=== PATIENT | male | born 1975 | race American Indian/Alaskan Native ===

== ENCOUNTER 2018-11-10 09:46 | Emergency (ER) | payer MEDICAID ==
[2018-11-10] MEDS ORDERED: Succinylcholine 200 MG/10 ML MDV IV ONE (09:47)
[2018-11-10] MEDS ORDERED: Propofol 200 MG/20 ML SDV IV ONE (09:47)
[2018-11-10] MEDS ORDERED: Rocuronium 100 MG/10 ML MDV IV ONE (09:47)
[2018-11-10] MEDS ORDERED: Piperacillin/Tazobactam 3.375 GM in Sodium Chloride 0.9% 100 ML IV ONE (10:19)
[2018-11-10] MEDS ORDERED: Sodium Chloride 0.9% 100 ML ONE (10:19)
[2018-11-10] MEDS ORDERED: Albuterol/Ipratropium 3.0-0.5 MG/3 ML Neb Soln ONE (10:21)
[2018-11-10] MEDS ORDERED: Albuterol/Ipratropium 3.0-0.5 MG/3 ML Neb Soln NEB ONE (10:22)
[2018-11-10] MEDS ORDERED: Norepinephrine 4 MG in Dextrose 5% in Water 246 ML IV SCH ×2 (10:30)
--- NOTE | 2018-11-10 10:36 | PCM.SN ---
- Free Text/Narrative Note: Intubation. Called by ER provider for intubation. Pt obtunded, spontaneous respiratory effort and assisted with ambu bag, O2 sats in the high 70's. Pt's friend present and able to give limited history. Pt defasciculated with 5 mg of zemuron at 1105, 160 mg of propofol for sedation at 1108 and 100 mg of anectine at 1109. Glidescope used per ER provider, # 4 blade, unable to intubate, Pt bagged, with O2 sats dropping. #3 Glidescope blade, unable to intubate. Intubated by [employer] at 1111. 22 cm at lip, BBS, pos fogging and ETCO2 color change. OG placed, PCXR. [facility] here at 1020. Report given and care assumed by [facility]. PCXR confirmed tube placement.
[2018-11-10] MEDS ORDERED: cefTRIAXone 1 GM Vial IM ONE (10:37)
[2018-11-10 10:38] LABS: CHLORIDE,CL 108 mmol/L (101-111); SODIUM,NA 140 mmol/L (135-145)
[2018-11-10] MEDS ORDERED: cefTRIAXone 1 GM in Sodium Chloride 0.9% 50 ML IV ONE (10:39)
[2018-11-10] MEDS ORDERED: Albuterol 0.083% 2.5 MG/3 ML Neb Soln ONE (10:40)
[2018-11-10] MEDS ORDERED: methylPREDNISolone Sodium Succinate 125 MG/2 ML SDV IVPUSH ONE (10:42)
--- NOTE | 2018-11-10 12:42 | EDM.PDOC ---
Scribed by Grace Faust 11/10/18 1134 for Jenelle Reed NP ED HPI GENERAL MEDICAL PROBLEM - General Chief Complaint: Respiratory Problem Stated Complaint: UNKNOWN Time Seen by Provider: 11/10/18 09:50 Source of Information: Reports: EMS, EMS Notes Reviewed, Family, RN, RN Notes Reviewed History Limitations: Reports: Altered Mental Status, Respiratory Distress - History of Present Illness INITIAL COMMENTS - FREE TEXT/NARRATIVE: Patient presents to ER per [facility] from [facility]. His found patient unresponsive. They had been up earlier in the morning. states recent history of bilateral pneumonia and hospitalized in [place]. Family is from the [place] area. They are here visiting. EMS reports SATS 30 upon their arrival. Patient opens eyes to voice. Patient is in severe distress. Onset: Today Severity: Severe Improves with: Reports: None Worsens with: Reports: None Associated Symptoms: Reports: No Other Symptoms Past Medical History Respiratory History: Reports: Other (See Below) Other Respiratory History: double pneumonia ED ROS GENERAL - Review of Systems Review Of Systems: Unable To Obtain (due to severe respiratory distress) ED EXAM, GENERAL - Physical Exam Exam: See Below Exam Limited By: Respiratory Distress General Appearance: Severe Distress Eye Exam: Bilateral Eye: Other (pupils 3 very sluggish) Ears: Normal External Exam, Normal Canal, Hearing Grossly Normal, Normal TMs Nose: Normal Inspection, Normal Mucosa, No Blood Throat/Mouth: Normal Inspection, Normal Lips, Normal Teeth, Normal Gums, Normal Oropharynx, Normal Voice, No Airway Compromise Head: Atraumatic, Normocephalic Neck: Normal Inspection, Supple, Non-Tender, Full Range of Motion Respiratory/Chest: Other (No air movement right lung. Crackles/rhonchi left lung.) Cardiovascular: Tachycardia GI/Abdominal: Normal Bowel Sounds, Soft, Non-Tender, No Organomegaly, No Distention, No Abnormal Bruit, No Mass (Male) Exam: Deferred Rectal (Males) Exam: Deferred Back Exam: Normal Inspection, Full Range of Motion, NT Extremities: Normal Inspection, Normal Range of Motion, Non-Tender, Normal Capillary Refill, No Pedal Edema Neurological: Other (altered mental status) Psychiatric: Normal Affect, Normal Mood Skin Exam: Warm, Dry, Intact, Normal Color, No Rash Course - Vital Signs Last Recorded V/S: Last Vital Signs Temp 98.8 F 04/20/19 09:50 Pulse 88 11/10/18 09:50 Resp 18 11/10/18 09:50 BP 96/70 11/10/18 09:50 Pulse Ox 75 L 11/10/18 09:50 - Orders/Labs/Meds Orders: Active Orders 24 hr Category Date Time Status RT Aerosol Therapy [RC] ASDIRECTED Care 11/10/18 10:22 Active CULTURE BLOOD [BC] Routine Lab 11/10/18 10:02 Received CULTURE BLOOD [BC] Routine Lab 11/10/18 10:08 Received CULTURE STREP A CONFIRMATION [RM] Stat Lab 11/10/18 10:19 Results STREP SCRN A RAPID W CULT CONF [RM] Stat Lab 11/10/18 10:19 Results Labs: Laboratory Tests 11/10/18 11/10/18 11/10/18 Range/Units 10:02 10:02 10:02 WBC 6.6 (5.0-10.0) 10^3/uL RBC 4.05 L (4.6-6.2) 10^6/uL Hgb 10.6 L (14.0-18.0) g/dL Hct 34.3 L (40.0-54.0) % MCV 84.7 (80-100) fL MCH 26.2 L (27.0-34.0) pg MCHC 30.9 L (33.0-35.0) g/dL Plt Count 230 (150-450) 10^3/uL Neut % (Auto) 86.0 H (42.2-75.2) % Lymph % (Auto) 5.6 L (20.5-50.1) % [place] % (Auto) 7.7 (2-8) % Eos % (Auto) 0.2 L (1.0-3.0) % Baso % (Auto) 0.5 (0.0-1.0) % Add Manual Diff Yes Neutrophils % (Manual) 13 L (42-75) % Band Neutrophils % 49 % Lymphocytes % (Manual) 11 L (20-50) % Monocytes % (Manual) 4 (2-8) % Metamyelocytes % 15 Myelocytes % 8 Vacuolated Monocytes Few Dohle Bodies Few Platelet Estimate Adequate Basophilic Stippling Few Anisocytosis 2+ moderate Target Cells Few Ovalocytes Few PT (9.0-12.0) SEC INR (0.9-1.2) D-Dimer, Quantitative (0-400) ng/mL Sodium 140 (135-145) mmol/L Potassium 4.0 (3.6-5.0) mmol/L Chloride 108 (101-111) mmol/L Carbon Dioxide 22.0 (21.0-31.0) mmol/L Anion Gap 14.0 BUN 31 H (7-18) mg/dL Creatinine 1.2 (0.6-1.3) mg/dL Est Cr Clr Drug Dosing TNP Estimated GFR (MDRD) > 60 BUN/Creatinine Ratio 25.83 Glucose 91 (74-105) mg/dL Lactic Acid 1.6 (0.5-2.2) mmol/L Calcium 7.8 L (8.4-10.2) mg/dl Total Bilirubin 1.2 H (0.2-1.0) mg/dL AST 109 H (10-42) IU/L ALT 175 H (10-60) IU/L Alkaline Phosphatase 158 H (42-121) IU/L Troponin I 0.04 H* (0.00-0.02) ng/ml B-Natriuretic Peptide (0-100) pg/ml Total Protein 6.1 L (6.7-8.2) g/dl Albumin 3.1 L (3.2-5.5) g/dl Globulin 3.0 Albumin/Globulin Ratio 1.03 Urine Color (YELLOW) Urine Appearance (CLEAR) Urine pH (5.0-9.0) Ur Specific [place] (1.005-1.030) Urine Protein (NEGATIVE) Urine Glucose (UA) (NEGATIVE) Urine Ketones (NEGATIVE) Urine Occult Blood (NEGATIVE) Urine Nitrite (NEGATIVE) Urine Bilirubin (NEGATIVE) Urine Urobilinogen (0.2-1.0) mg/dL Ur Leukocyte Esterase (NEGATIVE) Urine RBC /HPF Urine WBC (0-5/HPF) /HPF Ur Epithelial Cells /HPF Amorphous Sediment (0/HPF) /HPF Urine Bacteria (0-FEW/HPF) /HPF Hyaline Casts /LPF Urine Mucus /LPF Urine Opiates Screen (NEGATIVE) Ur Oxycodone Screen (NEGATIVE) Urine Methadone Screen (NEGATIVE) Ur Barbiturates Screen (NEGATIVE) U Tricyclic Antidepress (NEGATIVE) Ur Phencyclidine Scrn (NEGATIVE) Ur Amphetamine Screen (NEGATIVE) U Methamphetamines Scrn (NEGATIVE) Urine MDMA Screen (NEGATIVE) U Benzodiazepines Scrn (NEGATIVE) Urine Cocaine Screen (NEGATIVE) U Marijuana (THC) Screen (NEGATIVE) 11/10/18 11/10/18 11/10/18 Range/Units 10:02 10:02 10:02 WBC (5.0-10.0) 10^3/uL RBC (4.6-6.2) 10^6/uL Hgb (14.0-18.0) g/dL Hct (40.0-54.0) % MCV (80-100) fL MCH (27.0-34.0) pg MCHC (33.0-35.0) g/dL Plt Count (150-450) 10^3/uL Neut % (Auto) (42.2-75.2) % Lymph % (Auto) (20.5-50.1) % Knox % (Auto) (2-8) % Eos % (Auto) (1.0-3.0) % Baso % (Auto) (0.0-1.0) % Add Manual Diff Neutrophils % (Manual) (42-75) % Band Neutrophils % % Lymphocytes % (Manual) (20-50) % Monocytes % (Manual) (2-8) % Metamyelocytes % Myelocytes % Vacuolated Monocytes Dohle Bodies Platelet Estimate Basophilic Stippling Anisocytosis Target Cells Ovalocytes PT 9.9 (9.0-12.0) SEC INR 1.0 (0.9-1.2) D-Dimer, Quantitative 717 H (0-400) ng/mL Sodium (135-145) mmol/L Potassium (3.6-5.0) mmol/L Chloride (101-111) mmol/L Carbon Dioxide (21.0-31.0) mmol/L Anion Gap BUN (7-18) mg/dL Creatinine (0.6-1.3) mg/dL Est Cr Clr Drug Dosing Estimated GFR (MDRD) BUN/Creatinine Ratio Glucose (74-105) mg/dL Lactic Acid (0.5-2.2) mmol/L Calcium (8.4-10.2) mg/dl Total Bilirubin (0.2-1.0) mg/dL AST (10-42) IU/L ALT (10-60) IU/L Alkaline Phosphatase (42-121) IU/L Troponin I (0.00-0.02) ng/ml B-Natriuretic Peptide 236 H (0-100) pg/ml Total Protein (6.7-8.2) g/dl Albumin (3.2-5.5) g/dl Globulin Albumin/Globulin Ratio Urine Color (YELLOW) Urine Appearance (CLEAR) Urine pH (5.0-9.0) Ur Specific [place] (1.005-1.030) Urine Protein (NEGATIVE) Urine Glucose (UA) (NEGATIVE) Urine Ketones (NEGATIVE) Urine Occult Blood (NEGATIVE) Urine Nitrite (NEGATIVE) Urine Bilirubin (NEGATIVE) Urine Urobilinogen (0.2-1.0) mg/dL Ur Leukocyte Esterase (NEGATIVE) Urine RBC /HPF Urine WBC (0-5/HPF) /HPF Ur Epithelial Cells /HPF Amorphous Sediment (0/HPF) /HPF Urine Bacteria (0-FEW/HPF) /HPF Hyaline Casts /LPF Urine Mucus /LPF Urine Opiates Screen (NEGATIVE) Ur Oxycodone Screen (NEGATIVE) Urine Methadone Screen (NEGATIVE) Ur Barbiturates Screen (NEGATIVE) U Tricyclic Antidepress (NEGATIVE) Ur Phencyclidine Scrn (NEGATIVE) Ur Amphetamine Screen (NEGATIVE) U Methamphetamines Scrn (NEGATIVE) Urine MDMA Screen (NEGATIVE) U Benzodiazepines Scrn (NEGATIVE) Urine Cocaine Screen (NEGATIVE) U Marijuana (THC) Screen (NEGATIVE) 11/10/18 11/10/18 Range/Units 10:15 10:15 WBC (5.0-10.0) 10^3/uL RBC (4.6-6.2) 10^6/uL Hgb (14.0-18.0) g/dL Hct (40.0-54.0) % MCV (80-100) fL MCH (27.0-34.0) pg MCHC (33.0-35.0) g/dL Plt Count (150-450) 10^3/uL Neut % (Auto) (42.2-75.2) % Lymph % (Auto) (20.5-50.1) % Knox % (Auto) (2-8) % Eos % (Auto) (1.0-3.0) % Baso % (Auto) (0.0-1.0) % Add Manual Diff Neutrophils % (Manual) (42-75) % Band Neutrophils % % Lymphocytes % (Manual) (20-50) % Monocytes % (Manual) (2-8) % Metamyelocytes % Myelocytes % Vacuolated Monocytes Dohle Bodies Platelet Estimate Basophilic Stippling Anisocytosis Target Cells Ovalocytes PT (9.0-12.0) SEC INR (0.9-1.2) D-Dimer, Quantitative (0-400) ng/mL Sodium (135-145) mmol/L Potassium (3.6-5.0) mmol/L Chloride (101-111) mmol/L Carbon Dioxide (21.0-31.0) mmol/L Anion Gap BUN (7-18) mg/dL Creatinine (0.6-1.3) mg/dL Est Cr Clr Drug Dosing Estimated GFR (MDRD) BUN/Creatinine Ratio Glucose (74-105) mg/dL Lactic Acid (0.5-2.2) mmol/L Calcium (8.4-10.2) mg/dl Total Bilirubin (0.2-1.0) mg/dL AST (10-42) IU/L ALT (10-60) IU/L Alkaline Phosphatase (42-121) IU/L Troponin I (0.00-0.02) ng/ml B-Natriuretic Peptide (0-100) pg/ml Total Protein (6.7-8.2) g/dl Albumin (3.2-5.5) g/dl Globulin Albumin/Globulin Ratio Urine Color Dark yellow (YELLOW) Urine Appearance Cloudy (CLEAR) Urine pH 5.5 (5.0-9.0) Ur Specific [place] 1.025 (1.005-1.030) Urine Protein 30 H (NEGATIVE) Urine Glucose (UA) Negative (NEGATIVE) Urine Ketones Trace H (NEGATIVE) Urine Occult Blood Negative (NEGATIVE) Urine Nitrite Negative (NEGATIVE) Urine Bilirubin Small H (NEGATIVE) Urine Urobilinogen 1.0 (0.2-1.0) mg/dL Ur Leukocyte Esterase Negative (NEGATIVE) Urine RBC 0-5 /HPF Urine WBC 0-5 (0-5/HPF) /HPF Ur Epithelial Cells Few /HPF Amorphous Sediment Moderate (0/HPF) /HPF Urine Bacteria Few (0-FEW/HPF) /HPF Hyaline Casts Many H /LPF Urine Mucus Many H /LPF Urine Opiates Screen Positive H (NEGATIVE) Ur Oxycodone Screen Positive H (NEGATIVE) Urine Methadone Screen Negative (NEGATIVE) Ur Barbiturates Screen Negative (NEGATIVE) U Tricyclic Antidepress Negative (NEGATIVE) Ur Phencyclidine Scrn Negative (NEGATIVE) Ur Amphetamine Screen Negative (NEGATIVE) U Methamphetamines Scrn Negative (NEGATIVE) Urine MDMA Screen Negative (NEGATIVE) U Benzodiazepines Scrn Negative (NEGATIVE) Urine Cocaine Screen Negative (NEGATIVE) U Marijuana (THC) Screen Negative (NEGATIVE) Meds: Medications Discontinued Medications Generic Name Dose Route Start Last Admin Trade Name Frealexei PRN Reason Stop Dose Admin Albuterol Confirm 11/10/18 10:40 11/10/18 10:30 Proventil Neb Soln Administered 11/10/18 10:41 7.5 mg Dose Administration 7.5 mg .ROUTE .STK-MED ONE Albuterol/Ipratropium 3 ml 11/10/18 10:22 11/10/18 10:32 Duoneb 3.0-0.5 Mg/3 Ml NEB 11/10/18 10:23 3 ml ONETIME ONE Administration Albuterol/Ipratropium Confirm 11/10/18 10:21 11/10/18 11:07 Duoneb 3.0-0.5 Mg/3 Ml Administered 11/10/18 10:22 Not Given Dose 3 ml .ROUTE .STK-MED ONE Ceftriaxone Sodium 1 gm 11/10/18 10:37 Rocephin IM 11/10/18 10:38 ONETIME ONE Ceftriaxone Sodium 1,000 mg/ 100 mls @ 200 mls/hr 11/10/18 10:18 Sodium Chloride IV 11/10/18 10:47 ONETIME ONE Piperacillin Sod/Tazobactam 100 mls @ 200 mls/hr 11/10/18 10:19 11/10/18 10: 34 Sod 3.375 gm/ Sodium Chloride IV 11/10/18 10:48 200 mls/hr ONETIME ONE Administration Norepinephrine Bitartrate 4 mg 250 mls @ 7.5 mls/hr 11/10/18 10:30 11/10/18 10:33 / Dextrose/Water IV 2 mcg/min TITRATE TORSTEN 7.5 mls/hr Administration Protocol 2 MCG/MIN Sodium Chloride Confirm 11/10/18 10:19 11/10/18 11:07 Normal Saline Administered 11/10/18 10:20 Not Given Dose 100 mls @ as directed .ROUTE .STK-MED ONE Ceftriaxone Sodium 1 gm/ 50 mls @ 50 mls/hr 11/10/18 10:39 11/10/18 10:30 Sodium Chloride IV 11/10/18 11:38 50 mls/hr ONETIME ONE Administration Methylprednisolone Sodium Succinate 125 mg 11/10/18 10:42 11/10/18 10:45 Solu-Medrol IVPUSH 11/10/18 10:43 125 mg ONETIME ONE Administration - Radiology Interpretation Free Text/Narrative:: Chest xray pre intubation: Findings/impression: There are patchy to consolidative multifocal right lung opacities concerning for multifocal pneumonia. There are hazy left infrahilar opacities. No effusion or pneumothorax is seen. Heart size is mildly prominent for technique. Thank you for allowing us to participate in the care of your patient. Dictated and Authenticated by: Luis Espinosa MD 11/10/2018 10:55 AM Central Time ([place] & [place]) Chest xray post intubation: FINDINGS/IMPRESSION: An endotracheal tube is in place terminating well above the cherri at the sternoclavicular joint level. Multifocal consolidated right lung airspace disease and patchy left infrahilar opacities are again noted. There is no pneumothorax. Thank you for allowing us to participate in the care of your patient. Dictated and Authenticated by: Luis Espinosa MD 11/10/2018 10:54 AM Central Time ([place] & [place]) See rad report - Re-Assessments/Exams Free Text/Narrative Re-Assessment/Exam: 11/10/18 12:38 Discussed patient case with Dr. Jones in the ER at [facility], who accepted the patient for transfer via chopper. Departure - Departure Time of Disposition: 10:58 Disposition: DC/Tfer to Acute Hospital 02 Condition: Poor, Critical Clinical Impression: Pneumonia Qualifiers: Pneumonia type: due to unspecified organism Laterality: bilateral Lung location : unspecified part of lung Qualified Code(s): J18.9 - Pneumonia, unspecified organism Respiratory failure Qualifiers: Chronicity: acute Respiratory failure complication: hypoxia and hypercapnia Qualified Code(s): J96.01 - Acute respiratory failure with hypoxia; J96.02 - Acute respiratory failure with hypercapnia - Discharge Information *PRESCRIPTION DRUG MONITORING PROGRAM REVIEWED*: No *COPY OF PRESCRIPTION DRUG MONITORING REPORT IN PATIENT KAYLIE: No Referrals: PCP,Not In Area [Primary Care Provider] - Forms: ED Department Discharge, Interfacility Transfer EMTALA - My Orders Last 24 Hours: My Active Orders 11/10/18 10:02 CULTURE BLOOD [BC] Routine 11/10/18 10:08 CULTURE BLOOD [BC] Routine 11/10/18 10:19 CULTURE STREP A CONFIRMATION [RM] Stat STREP SCRN A RAPID W CULT CONF [RM] Stat 11/10/18 10:22 RT Aerosol Therapy [RC] ASDIRECTED - Assessment/Plan Last 24 Hours: My Active Orders 11/10/18 10:02 CULTURE BLOOD [BC] Routine 11/10/18 10:08 CULTURE BLOOD [BC] Routine 11/10/18 10:19 CULTURE STREP A CONFIRMATION [RM] Stat STREP SCRN A RAPID W CULT CONF [RM] Stat 11/10/18 10:22 RT Aerosol Therapy [RC] ASDIRECTED I have read and agree with the documentation that has been completed regarding this visit. By signing this record, I attest that the documentation was completed in my physical presence and is an accurate record of the encounter.
== END 2018-11-10 10:58 ==
LOC: EDBD → DL.ED 09:46
DX: J96.02 Acute respiratory failure with hypercapnia (principal); J18.9 Pneumonia, unspecified organism
CPT/HCPCS: 31500; 36415; 71045; 80053; 80305; 81001; 83605; 83880; 84484; 85025; 85379; 85610; 87040; 87081; 87430; 87804; 96374; 99285; J0330; J0696; J2543; J2704; J2930; J7050; J7060; J7613-GY; J7620-GY